=== PATIENT | female | born 1980 | race Caucasian/White ===

== ENCOUNTER 2023-09-04 02:55 | Outpatient (CLI) | payer BC, SELFPAY ==
[2023-09-04 17:32] LABS: Lab Add On Test DONE
== END 2023-09-04 02:56 | disposition home or self-care (01) ==
LOC: LBO 02:55
PROVIDERS: Advanced Practice Midwife; PCP Family Medicine; Visit Provider Family Medicine
DX: O26.891 Other specified pregnancy related conditions, first trimester (principal); Z67.91 Unspecified blood type, Rh negative
CPT/HCPCS: 36415; 86850; 86900; 86901; 90384

== ENCOUNTER 2023-11-17 15:11 | Inpatient (IN) | payer BC, SELFPAY ==
--- NOTE | 2023-10-23 | DI.US_ITS ---
Exam(s) US OB NICKY WEIGHT EXAM: US OB NICKY WEIGHT CLINICAL HISTORY: EXCESS GROWTH,[id number]. TECHNIQUE: Transabdominal obstetrical ultrasound performed. COMPARISON: US US OB TRANSVAGINAL from 04/03/2023 US US OB Greater Than 14 Weeks from 07/09/2023 FINDINGS:: Number of fetuses: One. position: Vertex. Placental location: Posterior. No evidence of previa. BIOMETRIC DATA: BPD: 94mm = 38+ 1 weeks HC: 341mm = 39+ 2 weeks AC: 348mm = 38+ 5 weeks FL: 74 mm = 37+ 6 weeks EFW: 09/28/2002 Gms = 95% Composite Age: 38+ 4 weeks OH: 02 November 2023 Heart Rate: 144BPM Amniotic fluid index: 15.5 cm. Amount of fluid is visually within normal limits. IMPRESSION: size is measuring more than 2 weeks above expected. weight at 95th percentile. DATA REPOSITORY:
[2023-11-17 15:24] VITALS: BP 124/81; PULSE 94; RESP 18; TEMP 36.9; O2SAT 99
[2023-11-17 15:25] VITALS: BP 124/81; PULSE 94
[2023-11-17] MEDS: miSOPROStol 25 MCG TAB PO ×3 (15:41→23:44)
--- NOTE | 2023-11-17 15:54 | W.PM.OBHPL1 ---
Date of service: 11/17/23 Time of Service: 15:54 Assessment and Plan Assessment and plan (1) Term : Status: Acute Assessment and plan: Narda is a 43yo at 40w with RH- RI GBS- HepB- HIV-. 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 Uncomplicated , no GDM, however in last 2 months, she has been measuring large. US 10/23/23 showed EFW 3500g, 95th%. Due to this and her age, we did decide to induce at 40 weeks which Narda was in agreement with . She received rhogam at 28 weeks.Plan for miso overnigh as long as she tolerates it. Current SVE is 0/30/-3, bishops score of 2. If necessary, will proceed with Pitocin in the morning. She does want to avoid medical interventions if possible. her transportation services representative will attend her delivery as well as her . she can eat tonight. Will use Hydroxazine for sleep at her request. Routine care otherwise. (2) Rh negative state in antepartum period: Status: Acute (3) HSV-2 infection complicating : Status: Acute Qualifiers: Trimester: third trimester Qualified Code(s): O98.513 - Other viral diseases complicating , third trimester; B00.9 - Herpesviral infection, unspecified (4) Hypothyroid: Status: Chronic Qualifiers: Hypothyroidism type: acquired Qualified Code(s): E03.9 - Hypothyroidism, unspecified OB-HPI Labor/Delivery History of Present Illness Chief Complaint: Scheduled Induction of Labor Indication for Induction: Macrosomia. OH Calculator Estimated Delivery Date Method Current WG Current Estimate 11/17/23 LMP (Certain) 40w 0d Comments: Advanced maternal age, large for gestational age History of Present Expected Delivery Route/Plan Specific Issues/Plan HSV, on prophylaxis Assessment: History Reviewed & Current Informed Consent Informed Consent: Induction of Labor Review of Systems All systems reviewed & are unremarkable except as noted in HPI and below PFSH All Active Problems (Updated 11/17/23 @ 16:03 by Robinson Naqvi) Hypothyroid (Chronic) HSV-2 infection complicating (Acute) Term (Acute) Rh negative state in antepartum period (Acute) Social History Smoking/Tobacco Use Status: Never Smoking risk assessment performed?: Yes Housing: house Do you feel safe at home: Yes History History 6 Para 0 Hx # Term Pregnancies Multiple births Hx # Pregnancies Ectopic pregnancies AB induced Hx Number of Living Children AB spontaneous Meds Allergies and Home Medications Allergies Allergy/AdvReac Type Severity Reaction Status Date / Time No Known Allergies Allergy Verified 09/04/23 15:15 Home Medications Medication Instructions Recorded Confirmed Type Unknown [Unable to Obtain] 09/04/23 09/04/23 History Exam Physical Exam Vital signs: Temp Pulse Resp BP Pulse Ox 36.9 C 94 H 18 124/81 99 11/17/23 15:24 11/17/23 15:25 11/17/23 15:24 11/17/23 15:25 11/17/23 15:24 Vital Signs Reviewed: Yes Detailed Labor and Delivery Exam Dilation: 0 Effacement (%): 30 station: -3 Cervix position: posterior Consistency: soft Vanessa Score: Cervical Points Exam 0 1 2 3 Dilation Closed 1-2cm 3-4 cm 5-6cm Effacement 0-30% 40-50% 60-70% 80% Consistency Firm Medium Soft Station -3 -2 -1,0 +1,+2 Position Posterior Mid Anterior VANESSA Score(Cervical Ripeness Score): 2 Amniotic Membrane Status: Intact Monitor Mode: External Contraction Frequency(min): none Fetus A Heart Rate Baseline: 140 Monitor Accelerations: 15 X 15 Monitor Decelerations: None Variability: Moderate (6-25 BPM) Presentation: Vertex Categories: Category I Est. Weight: 4000g HEENT Exam HEENT Exam: Normal Respiratory Exam Respiratory Exam: Normal Cardiovascular Exam Cardiovascular Exam: Normal Abdominal Exam Abdominal Exam: Normal Exam Exam: Normal Extremities Exam Extremities Exam: Abnormal (1+ edema of hands and feet) Skin Exam Skin Exam: Abnormal (erythematous lesions along stretch cox on abdomen) Detailed Neurological Exam Neurological: Present alert, oriented X3, normal reflexes and normal speech Results Results Group Beta Strep: Negative Blood Type: O- Rubella Status: Immune Varicella Immunity: Not Tested Risk Assessment Risk for Shoulder Dystocia Historical/Initial OB: POSITIVE FOR: Pre- BMI>30 40 Weeks: POSTIVE FOR: Maternal Weight Gain >40lb Increased Risk?: Yes Counseling: Maybe not estimated to be 4500g but is measuring large. Counseling done, risk of shoulder dystocia discussed, increased risk of C section discussed. Date/Initial: 11/17/23 [facility] Risk for Pre-Eclampsia Daily Dose ASA Indicated: No Yes, if 2 or more: POSITIVE FOR: Nulliparity, Age>= 35 yrs and BMI>30 Risk for Post- Hemorrhage At Risk?: No Counseled re: Active Management: Yes Risks Reviewed Risks Reviewed Upon Admission: Yes
[2023-11-17 15:55] LABS: HCT 33.9 % (36.0-46.0); HGB 11.6 g/dL (11.2-15.7); MCH 29.4 pg (27.0-33.0); MCHC 34.2 % (32.0-36.0); MCV 86 fL (80-95); MPV 10.4 fL (8.0-11.0); Platelet Count 205 10^3/uL (130-400); RBC 3.94 10^6/uL (3.93-5.22); RDW 13.8 % (11.7-14.6); RDW-SD 42.9 fL; WBC 8.69 10^3/uL (4.4-10.8)
[2023-11-17 19:32] VITALS: BP 137/82; PULSE 95
[2023-11-17 19:33] VITALS: PULSE 85; PULSE 86; O2SAT 97
[2023-11-17 19:38] VITALS: BP 137/82; RESP 18; TEMP 37.2; O2SAT 98
[2023-11-17] MEDS: valACYclovir 500 MG TAB PO (19:50)
[2023-11-17] MEDS: hydrOXYzine HCL 50 MG TAB PO (21:15)
--- NOTE | 2023-11-17 22:10 | NUR.NOTE ---
Nursing Note:2049-MD Robinson called. New order received. Goal for tonight is sleep while cervical ripening. 2149- Pt off EFM per orders. Performed patinet teaching regarding signs/symptoms to call this RN tonight between Miso doses. Pt encouraged to verbalize needs Pt verbalized understanding.
[2023-11-17 23:37] VITALS: BP 131/74; PULSE 68
[2023-11-18] VITALS (13 sets, daily range): BP systolic 120–135; BP diastolic 58–79; PULSE 0–98; RESP 18; TEMP 36.4–36.9
[2023-11-18] MEDS: miSOPROStol 25 MCG TAB PO (04:01)
[2023-11-18] MEDS: Levothyroxine 25 MCG TAB PO (05:56)
--- NOTE | 2023-11-18 07:27 | W.PM.OBNL1 ---
Date of service: 11/18/23 Time of Service: 07:27 Informed Consent Informed Consent: Induction of Labor Pelvic Exam Dilation: 0 Effacement (%): 40 station: -3 Cervix Position: mid Consistency: soft BISHOPS Score(Cervical Ripeness Score): 3 Vaginal Exam Presentation: Vertex Contractions Monitor Mode: None Fetus A Monitor: External (US) Heart Rate Baseline: 125 Presentation: Vertex Variability: Moderate (6-25 BPM) Categories: Category I FHR Rhythm: Regular Characteristics: Normal Accelerations: 15 X 15 Decelerations: None Amniotic Membrane Status: Intact Assessment and Plan Assessment and plan (1) Term : Status: Acute Assessment and plan: Narda received 4 doses of miso overnight with minimal change. Cervix is not open so I cannot place a cook balloon. Discussed starting pitocin v continuing with cervical ripening and given low bishops score, will place cervadil to continue cervical ripening. Risks and benefits discussed. She and her are in agreement with this plan. FHT have been normal throughout. No contractions. VSS. Platelets on admission were normal. Objective Abnormal lab results 11/17/23 Range/Units 15:30 Hct 33.9 L (36.0-46.0) % Temp Pulse Resp BP Pulse Ox 36.4 C L 82 18 120/58 L 98 11/18/23 03:41 11/18/23 03:41 11/18/23 01:01 11/18/23 03:41 11/17/23 19:38 Laboratory Results WBC 8.69 10^3/uL (4.4-10.8) 11/17/23 15:30 RBC 3.94 10^6/uL (3.93-5.22) 11/17/23 15:30 Hgb 11.6 g/dL (11.2-15.7) 11/17/23 15:30 Hct 33.9 % (36.0-46.0) L 11/17/23 15:30 MCV 86 fL (80-95) 11/17/23 15:30 MCH 29.4 pg (27.0-33.0) 11/17/23 15:30 MCHC 34.2 % (32.0-36.0) 11/17/23 15:30 RDW 13.8 % (11.7-14.6) 11/17/23 15:30 Plt Count 205 10^3/uL (130-400) 11/17/23 15:30 MPV 10.4 fL (8.0-11.0) 11/17/23 15:30 Patient ABO/Rh O Negative 11/17/23 15:30 Antibody Screen POSITIVE 11/17/23 15:30 Antibody Identification Anti-D 11/17/23 15:30 Vital Signs Reviewed: Yes Subjective Interval history since last seen: Narda did well overnight, although not much sleep. Did have some cramping with miso doses. Results Hemoglobin/Hematocrit: Hgb 11.6 g/dL (11.2-15.7) 11/17/23 15:30 Hct 33.9 % (36.0-46.0) L 11/17/23 15:30 Abnormal Lab Findings: Abnormal Labs 11/17/23 15:30 Hct 33.9 L
[2023-11-18] MEDS: Dinoprostone-CERVICAL 10 MG VSUPP VG (08:46)
[2023-11-18] MEDS: valACYclovir 500 MG TAB PO (10:21)
--- NOTE | 2023-11-18 14:51 | W.PM.OBNL1 ---
Date of service: 11/18/23 Time of Service: 14:51 Informed Consent Informed Consent: Induction of Labor Contractions Monitor Mode: External Contraction Frequency(min): 0 Fetus A Monitor: External (US) Heart Rate Baseline: 150 Presentation: Vertex Variability: Moderate (6-25 BPM) Categories: Category I FHR Rhythm: Regular Characteristics: Normal Accelerations: 15 X 15 Decelerations: None Amniotic Membrane Status: Intact Assessment and Plan Assessment and plan (1) Term : Status: Acute Assessment and plan: Narda is doing well, although not feeling much change. Cervidil in place since just before 9am. Baby is tolerating well although difficult to keep on the monitor. Category 1 strip when seen. Continue current plan. Anticipate starting pitocin at 915pm. Objective Abnormal lab results 11/17/23 Range/Units 15:30 Hct 33.9 L (36.0-46.0) % Temp Pulse Resp BP Pulse Ox 36.8 C 80 18 128/79 98 11/18/23 12:45 11/18/23 12:43 11/18/23 01:01 11/18/23 12:43 11/17/23 19:38 Laboratory Results WBC 8.69 10^3/uL (4.4-10.8) 11/17/23 15:30 RBC 3.94 10^6/uL (3.93-5.22) 11/17/23 15:30 Hgb 11.6 g/dL (11.2-15.7) 11/17/23 15:30 Hct 33.9 % (36.0-46.0) L 11/17/23 15:30 MCV 86 fL (80-95) 11/17/23 15:30 MCH 29.4 pg (27.0-33.0) 11/17/23 15:30 MCHC 34.2 % (32.0-36.0) 11/17/23 15:30 RDW 13.8 % (11.7-14.6) 11/17/23 15:30 Plt Count 205 10^3/uL (130-400) 11/17/23 15:30 MPV 10.4 fL (8.0-11.0) 11/17/23 15:30 Patient ABO/Rh O Negative 11/17/23 15:30 Antibody Screen POSITIVE 11/17/23 15:30 Antibody Identification Anti-D 11/17/23 15:30 Vital Signs Reviewed: Yes Subjective Interval history since last seen: Narda is comfortable, still some intermittent cramping and irregular contractions. Results Hemoglobin/Hematocrit: Hgb 11.6 g/dL (11.2-15.7) 11/17/23 15:30 Hct 33.9 % (36.0-46.0) L 11/17/23 15:30 Abnormal Lab Findings: Abnormal Labs 11/17/23 15:30 Hct 33.9 L
--- NOTE | 2023-11-18 17:49 | LC.LAC2 ---
Date of service: 11/18/23 Time of Service: 16:30 Note Note: Consultation Time spent with patient 15 min. Accompanied by:? Alone ? Partner ? Obstetrical Provider:? [place] Previous BF experience:? First time parent Background: D ? Plans to breastfeed and is well read. Desires support after delivery. Has her own pump, a lansinoh. Hx of breast reduction. A ? Reinforced parent feeding choice and information choice. R ? Comfort with information and looking forward to managing with baby here. Education was provided r/t:? -Benefits of for baby and mother -Benefits of early and frequent Jwwc-wa-Tftf (STS) -Benefits of early and frequent (expect that your baby will feed at least 8-12 times/24 hours) -Basics of milk production (frequent breast drainage + [id number] increase milk supply); stomach size -Baby-led feedings (cue-based), examples of feeding cues; waking baby for feedings, as needed -Positioning and attachment (signs of a good latch); stress that should not hurt -Indications of effective milk transfer (swallowing, contentment, softer breast, infant output, weight gain) -Recommendations for exclusive BF for the first six months of life; continued BF, with addition of complementary foods, beyond six months - takes practice; is a skill for mom and baby to learn -Risks of supplementation (breast milk substitutes), and risks of introducing pacifiers and bottles -Non-pharmacological pain management in labor -Importance of rooming-in, to avoid stress r/t separation from mother, to allow opportunities for parents to learn feeding cues, normal nighttime behaviors, and techniques for calming their baby -Recommendations for limiting visitors, to allow time for the family to establish , learn about their baby, and to allow family rest between feedings -Availability of inpatient and post-discharge support (notify RNs of any concerns, such as pain or difficulty getting NB to feed on either breast, etc) -Secrets of baby behavior (If NB has recently BF well, explore other reasons for crying.) -Written information provided and reviewed (Human Milk is Outstanding Food for Babies, ) Specific questions were addressed.? Mom was encouraged to call the Center, later in , if she has other BF-related questions. -Return to work and breast pump: Anticipating return to work or school mom will explore pump options under the Affordable Care Act (GEMA), WIC clinic or already has a breast pump. Reviewed access through DME provider or Resources as needed ??? Lucia Gomez, RNC, IBCLC, MST, BSN Investment Associate, Center, [facility], [facility] ([facility]) [address] [place] [address], [place] [address] o?? Topic areas o?? Benefits of and breastmilk o?? Importance of exclusive o?? Non-pharmacologic pain relief methods for labor o?? Early initiation of o?? Early ripo-ib-bocw contact o?? Rooming-in on a 24 hour basis o?? Baby-led feeding o?? Frequency of feeding in relation to establishing a milk supply o?? Exclusivity of for the first 6 months o?? Continuation of after introduction of appropriate complimentary foods Subjective Identifiers Parent's Name: Narda Fred Parental Concerns: introduction of services Background Experience: First Time Support: Supportive and Involved Partner and Supportive Family Feeding Preference: Exclusive Pump Availability: Has Pump Results Infant Weight/I&O Weight Change: Weight 130.635 kg I&O: 11/17/23 11/17/23 11/18/23 11/18/23 11:59 23:59 11:59 23:59 Output Total 300 / 300 Balance -300 / -300 Output: Urine 300 / 300 Other: Urine Color Light Hali Urine Appearance Clear Comment Pt voiding every couple of hours, denies pain, burning or incontinence Weight 130.635 kg
--- NOTE | 2023-11-18 20:59 | W.PM.OBDISCH ---
Date of service: 11/18/23 Time of Service: 20:59 DS: Diagnosis Discharge Diagnosis (1) Term : Status: Acute Asessment and Plan: Narda presented yesterday for a scheduled induction for post dates, advanced maternal age, and LGA. She received 4 doses of misoprostil with no change, minimal cramping. she then had cervedil placed. 12 hours later, when I went to remove the cervedil at 2030, it had fallen out. She remembers seeing the string in place at 1600. she still had no cervical change, was closed, and only very mild intermittent contractions. We discussed options including starting pitocin, pausing for the night to rest and starting pitocin in the morning, or discharging to home and trying again in a couple of days. She had her elected to go home. Baby was category 1, reactive. Jude vitals signs were normal throughout. She is discharged home and we will discuss next steps tomorrow. Discharge Plan Disposition Patient Disposition: Home Condition: Good Discharge Details Reason For Visit: Term Admit Date/Time: 11/17/23 15:11 Admit Provider: Robinson Naqvi Attending Provider: Robinson Naqvi Primary Care Provider: Robinson Naqvi Home Meds and New Rx's Prescriptions: No Action valacyclovir 500 mg tablet 500 mg PO BID levothyroxine 25 mcg tablet 25 mcg PO ONCE Patient Comments: TAKE ONE TABLET BY MOUTH EVERY MORNING ON AN EMPTY STOMACH Discharge Instructions Stand Alone Forms: Center Observation Activity:: Activity as Tolerated Equipment/Supplies:: No Equipment Needed Diet:: As Tolerated Discharge Orders Discharge Orders: Discharge Order (Routine); Ordered 11/18/23 Ordered By: Robinson Naqvi OB:DS Summary Summary Procedures: Not delivered Contraception Discussed Contraception Discussed: No, Status at Discharge Functional status at discharge: independent ambulation Overall status at discharge: patient is back to baseline Mental Status: mental status grossly normal Speech and Movement: speech and movement normal Mood: congruent mood Affect: normal affect Quality:SDOH Health Related Social Needs: No Data to Display Exam Physical Exam Vital signs: Temp Pulse Resp BP Pulse Ox 36.8 C 79 18 133/77 98 11/18/23 12:45 11/18/23 16:09 11/18/23 01:01 11/18/23 16:09 11/17/23 19:38 Vital Signs Reviewed: Yes Constitutional Constitutional: no acute distress Respiratory Exam Respiratory Exam: Normal Cardiovascular Exam Cardiovascular Exam: Normal Extremities Exam Comment: 1-2+ edema bilateral lower extremities. PFSH All Active Problems Hypothyroid (Chronic) HSV-2 infection complicating (Acute) Term (Acute) Rh negative state in antepartum period (Acute) Social History Smoking/Tobacco Use Status: Never Smoking risk assessment performed?: Yes Housing: house Do you feel safe at home: Yes Do you feel safe in your relationship?: Yes History History 6 Para 0 Hx # Term Pregnancies Multiple births Hx # Pregnancies Ectopic pregnancies AB induced Hx Number of Living Children AB spontaneous DS: Data Vitals/I&O Vitals and I&O: Vital Signs Temperature 36.8 C 11/18/23 12:45 Temperature Source Oral 11/18/23 12:45 Pulse 79 11/18/23 16:09 Pulse Rhythm Regular 11/17/23 16:10 Respiratory Rate 18 11/18/23 01:01 Blood Pressure 133/77 11/18/23 16:09 Blood Pressure Mean 100 11/17/23 19:38 Pulse Oximetry 98 11/17/23 19:38 Oxygen Delivery Method Room Air 11/17/23 15:24 Oxygen Flow Rate 0 11/17/23 15:24 Pain Level 0 11/17/23 15:24 Comment deferred at this time, pt is away from monitor 11/18/23 18:19 Intake & Output 11/17/23 11/18/23 11/18/23 23:59 11:59 23:59 Output Total 300 / 300 Balance -300 / -300 Weight 130.635 kg Output: Urine 300 / 300 Other: Urine Color Light Hali Urine Appearance Clear Comment Pt voiding every couple of hours, denies pain, burning or incontinence Data Completed and Pending Labs on day of discharge: Labs from last 24 hours 11/17/23 15:30 Antibody Screen POSITIVE Antibody Identification Anti-D
== END 2023-11-18 21:10 | disposition home or self-care (01) | DRG 832 ==
LOC: OBS 15:12
PROVIDERS: Admitting Provider Family Medicine; PCP Family Medicine; Visit Provider Family Medicine
DX: O36.63X0 Maternal care for excessive fetal growth, third trimester, not applicable or unspecified (principal); O98.513 Other viral diseases complicating pregnancy, third trimester; Z3A.38 38 weeks gestation of pregnancy; O26.893 Other specified pregnancy related conditions, third trimester; Z67.91 Unspecified blood type, Rh negative; B00.9 Herpesviral infection, unspecified; E03.9 Hypothyroidism, unspecified
CPT/HCPCS: 00123; 76816; 85027; 86850; 86900; 86901; 59200; 86870; J3490

== ENCOUNTER 2023-11-21 14:05 | Inpatient (IN) | payer BC, SELFPAY ==
[2023-11-21] VITALS (85 sets, daily range): BP systolic 100–163; BP diastolic 56–96; PULSE 39–111; RESP 16; TEMP 36.6–36.7; O2SAT 84–100; BMI 43.7
[2023-11-21] MEDS: Lactated Ringers 1,000 ML 125 ML IV ×2 (14:00→21:01)
--- NOTE | 2023-11-21 14:07 | HPE_ITS ---
Date of service: 11/21/23 Time of Service: 14:08 Assessment and Plan Assessment and plan (1) : Status: Acute Assessment and plan: Narda is a 43yo at 40.4weeks by LMP with O-, GBS- RI HIV- HepC-. complicated only by known HSV infection with one outbreak in third trimester, on prophylaxis since. Baby has measured LGA with US 10/22 showing 95th%, EFW 3500g at that time. We attempted induction 3 days ago with miso x4 and cervedill, but no change, so she went home. Today, she called reporting SROM at noon with green fluid. She had been having mild contractions for an hour which have now subsided. Given the moderate mec and no contractions currently, we did decide to start pitocin now. Her duola is present as is her . She would like to avoid epidural, open to nitrous. Qualifiers: Weeks of gestation: 40 weeks Qualified Code(s): Z3A.40 - 40 weeks gestation of (2) Hypothyroid: Status: Chronic Qualifiers: Hypothyroidism type: acquired Qualified Code(s): E03.9 - Hypothyroidism, unspecified (3) HSV-2 infection complicating : Status: Acute Qualifiers: Trimester: third trimester Qualified Code(s): O98.513 - Other viral diseases complicating , third trimester; B00.9 - Herpesviral infection, unspecified (4) Rh negative state in antepartum period: Status: Acute OB-HPI Labor/Delivery History of Present Illness Reason for Visit: NST Chief Complaint: Suspected Rupture of Membranes , Associated Signs and Symptoms of Suspected ROM: Leaking fluid. OH Calculator Estimated Delivery Date Method Current WG Current Estimate 11/17/23 LMP (Certain) 40w 4d History of Present Expected Delivery Route/Plan Specific Issues/Plan HSV, on prophylaxis Informed Consent Informed Consent: Induction of Labor Review of Systems All systems reviewed & are unremarkable except as noted in HPI and below PFSH All Active Problems (Updated 11/21/23 @ 14:13 by Robinson Naqvi) (Acute) Hypothyroid (Chronic) HSV-2 infection complicating (Acute) Term (Acute) Rh negative state in antepartum period (Acute) Social History (Reviewed 11/21/23 @ 14:12 by Robinson Chowdhury Smoking/Tobacco Use Status: Never Smoking risk assessment performed?: Yes Housing: house Do you feel safe at home: Yes Do you feel safe in your relationship?: Yes History History 6 Para 0 Hx # Term Pregnancies Multiple births Hx # Pregnancies Ectopic pregnancies AB induced Hx Number of Living Children AB spontaneous Meds Allergies and Home Medications Allergies Allergy/AdvReac Type Severity Reaction Status Date / Time No Known Allergies Allergy Verified 09/04/23 15:15 Home Medications Medication Instructions Recorded Confirmed Type levothyroxine 25 mcg tablet 25 mcg PO ONCE 11/17/23 11/17/23 History valacyclovir 500 mg tablet 500 mg PO BID 11/17/23 11/17/23 History Exam Physical Exam Vital signs: Pulse BP 111 H 124/64 11/21/23 13:23 11/21/23 13:23 Vital Signs Reviewed: Yes Constitutional Constitutional: no acute distress Detailed Labor and Delivery Exam Dilation: 0 Effacement (%): 40 station: -3 Cervix position: posterior Consistency: soft Vanessa Score: Cervical Points Exam 0 1 2 3 Dilation Closed 1-2cm 3-4 cm 5-6cm Effacement 0-30% 40-50% 60-70% 80% Consistency Firm Medium Soft Station -3 -2 -1,0 +1,+2 Position Posterior Mid Anterior VANESSA Score(Cervical Ripeness Score): 3 Amniotic Membrane Status: Ruptured Rupture Method: Spontaneous Amniotic Fluid: Meconium Pooling: Positive Monitor Mode: External Contraction Frequency(min): none Contraction Intensity: Mild Fetus A Heart Rate Baseline: 140 Monitor Accelerations: Present Monitor Decelerations: None Variability: Moderate (6-25 BPM) Presentation: Vertex Categories: Category I Est. Weight: 4000 Date of Membrane Rupture: 11/21/23 Time of Membrane Rupture: 11:55 Assessment Note: Category 1, a bit flat on admission but perked up when mom had a small snack. Now reactive, category 1. Respiratory Exam Respiratory Exam: Normal Cardiovascular Exam Cardiovascular Exam: Normal Exam Exam: Normal Extremities Exam Extremities Exam: Normal Results Results Group Beta Strep: Negative Blood Type: O- Rubella Status: Immune Varicella Immunity: Not Tested Risk Assessment Risk for Shoulder Dystocia Historical/Initial OB: POSITIVE FOR: Pre- BMI>30 40 Weeks: POSTIVE FOR: Maternal Weight Gain >40lb Counseling: Maybe not estimated to be 4500g but is measuring large. Counseling done, risk of shoulder dystocia discussed, increased risk of C section discussed. Date/Initial: 11/17/23 [facility] [place] Risk for Pre-Eclampsia Yes, if 2 or more: POSITIVE FOR: Nulliparity, Age>= 35 yrs and BMI>30 Risk for Post- Hemorrhage Counseled re: Active Management: Yes Risks Reviewed Risks Reviewed Upon Admission: Yes
[2023-11-21 14:28] LABS: HCT 36.7 % (36.0-46.0); HGB 12.3 g/dL (11.2-15.7); MCH 29.5 pg (27.0-33.0); MCHC 33.5 % (32.0-36.0); MCV 88 fL (80-95); MPV 9.5 fL (8.0-11.0); Platelet Count 240 10^3/uL (130-400); RBC 4.17 10^6/uL (3.93-5.22); RDW-SD 44.7 fL; WBC 9.46 10^3/uL (4.4-10.8)
--- NOTE | 2023-11-21 17:20 | W.PM.OBNL1 ---
Date of service: 11/21/23 Time of Service: 17:20 Informed Consent Informed Consent: Induction of Labor Pelvic Exam Dilation: 2 Effacement (%): 50 station: -3 Cervix Position: posterior Consistency: soft Vaginal Exam Presentation: Vertex Contractions Monitor Mode: External Contraction Frequency(min): 4 Contraction Duration(sec): 60 Intensity: Moderate/Strong Fetus A Monitor: Doppler Heart Rate Baseline: 125 Presentation: Vertex FHR Rhythm: Regular Characteristics: Normal Accelerations: Present Decelerations: None Amniotic Membrane Status: Ruptured Amniotic Fluid: Meconium Assessment and Plan Assessment and plan (1) : Status: Acute Assessment and plan: Pitocin was only turned on to 2u and she began karin regularly, and they have become quite intense. Pitocin was stopped when she was in the tub as we were not able to get baby on the monitor, but contractions continued. She initially got good relief from nitrous, but is requesting epidural. She has made good cervical change, so will proceed with epidural. When monitored, baby is doing well, FHR normal with accells. Anesthesia is coming in, and once in place, I may plave a IUPC. Qualifiers: Weeks of gestation: 40 weeks Qualified Code(s): Z3A.40 - 40 weeks gestation of Objective Temp Pulse Resp BP Pulse Ox 36.6 C 106 H 16 123/72 95 11/21/23 16:00 11/21/23 17:03 11/21/23 14:23 11/21/23 17:03 11/21/23 14:25 Laboratory Results WBC 9.46 10^3/uL (4.4-10.8) 11/21/23 14:17 RBC 4.17 10^6/uL (3.93-5.22) 11/21/23 14:17 Hgb 12.3 g/dL (11.2-15.7) 11/21/23 14:17 Hct 36.7 % (36.0-46.0) 11/21/23 14:17 MCV 88 fL (80-95) 11/21/23 14:17 MCH 29.5 pg (27.0-33.0) 11/21/23 14:17 MCHC 33.5 % (32.0-36.0) 11/21/23 14:17 RDW 14.0 % (11.7-14.6) 11/21/23 14:17 Plt Count 240 10^3/uL (130-400) 11/21/23 14:17 MPV 9.5 fL (8.0-11.0) 11/21/23 14:17 Patient ABO/Rh O Negative 11/21/23 14:17 Antibody Screen NEGATIVE 11/21/23 14:17 Vital Signs Reviewed: Yes Subjective Interval history since last seen: Contractions have intensified significantly, and she is requesting an epidural Results Hemoglobin/Hematocrit: Hgb 12.3 g/dL (11.2-15.7) 11/21/23 14:17 Hct 36.7 % (36.0-46.0) 11/21/23 14:17
--- NOTE | 2023-11-21 17:32 | ANES.PREOP_ITS ---
General Info Date of Service Date Performed: 11/21/23 Height: 5 ft 8 in Weight: 130.635 kg Body Mass Index (BMI): 43.7 Meds Allergies and Home Medications Allergies Allergy/AdvReac Type Severity Reaction Status Date / Time No Known Allergies Allergy Verified 09/04/23 15:15 Home Medication Medication Instructions Recorded levothyroxine 25 mcg tablet 25 mcg PO ONCE 11/17/23 valacyclovir 500 mg tablet 500 mg PO BID 11/17/23 Current Visit Medications: Current Medications Generic Name Dose Route Start Last Admin Trade Name Freq PRN Reason Stop Dose Admin Fentanyl/Ropivacaine 200 ml 11/21/23 17:30 Fentanyl/Ropivacaine 2 Mcg/Ml And 0.1% 200 Ml Cadd Cassette EP DIRECTED KENYETTA Ringer's Solution 1,000 mls @ 125 mls/hr 11/21/23 14:15 IV INFUSION KENYETTA Oxytocin/Sodium Chloride 30 unit in 500 mls @ 2 mls/hr 11/21/23 14:15 Pitocin/Normal Saline IV INFUSION KENYETTA Protocol 2 MILLIUNITS/MIN Ringer's Solution 500 mls @ 500 mls/hr 11/21/23 17:17 IV 11/21/23 18:16 BOLUS ONE IV Miscellaneous Supplies 1 each 11/21/23 14:15 Iv Access IV DIRECTED KENYETTA Sodium Chloride 0 ml 11/21/23 14:05 Normal Saline Flush 10 Ml Syr IVP PRN PRN Sodium Chloride 0 ml 11/21/23 20:00 Normal Saline Flush 10 Ml Syr IVP BID KENYETTA Sodium Chloride 0 ml 11/21/23 14:05 Normal Saline 10 Ml Vial IJ DIRECTED PRN PFSH Active Problems Active Problems: Problem Status Onset Code Z34.90 Hypothyroid E03.9 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, B00.9 Term Z34.90 Rh negative state in antepartum period O26.899, Z67.91 Tobacco Smoking/Tobacco Use Status: Never Alcohol Alcohol Intake: never Substance Use Substance use: Never Substance use type: does not use Prental History History 2 6 Para 0 Hx # Term Pregnancies Multiple births Hx # Pregnancies Ectopic pregnancies AB induced Hx Number of Living Children AB spontaneous Vital Signs and Lab Results Vital Signs Most Recent Vital Signs in EMR: Most Recent Vital Signs Temp Pulse Resp BP Pulse Ox 36.6 C 106 H 16 123/72 95 04/27/24 16:00 11/21/23 17:03 11/21/23 14:23 11/21/23 17:03 11/21/23 14:25 Lab Results 11/21/23 14:17 Blood Type / Crossmatch: 2 Patient ABO/Rh O Negative 11/21/23 Antibody Screen NEGATIVE 11/21/23 Complete Blood Count: 2 White Blood Count 9.46 10^3/uL (4.4-10.8) 11/21/23 14:17 Red Blood Count 4.17 10^6/uL (3.93-5.22) 11/21/23 14:17 Hemoglobin 12.3 g/dL (11.2-15.7) 11/21/23 14:17 Hematocrit 36.7 % (36.0-46.0) 11/21/23 14:17 Platelet Count 240 10^3/uL (130-400) 11/21/23 14:17 Complete Metabolic Panel: 2 No Data to Display Liver Function Panel: 2 No Data to Display Coagulation Panel: 2 No Data to Display Cardiac Panel: 2 No Data to Display Arterial Blood Gas: 2 No Data to Display Venous Blood Gas: 2 No Data to Display Pancreas Panel: 2 No Data to Display Thyroid Panel: 2 No Data to Display Infectious Disease: 2 No Data to Display Blood Cultures: 2 No Data to Display Toxicology Panel: 2 No Data to Display Panel: 2 No Data to Display Anesthesia Assessment and Plan Anesthesia History Personal History: No History of Anesthesia Complications and Malignant Hyperthermia Family History: No Family History of Anesthesia Complications Exercise Tolerance Exercise Tolerance: Metabolic Equivalents>4 Pertinent Negatives Pertinent Negatives: No Symptoms of GERD, No Major Cardiovascular Symptoms or Complaints, No Major Pulmonary Symptoms or Complaints and No History of CVA/TIA Cardiac & Pulmonary Exam Cardiac Exam: Normal S1/S2 Heart Sounds Pulmonary Exam: Clear Bilateral Breath Sounds Implantable Cardiac Device Does patient have a Pacemaker or an ICD?: No Airway Exam Known Difficult Airway: No Mallampati Class: 3 Mouth Opening: Normal (> 3cm) Thyromental Distance: Greater than 3 cm Neck Range of Motion: Full ROM Neck Circumference: Thick Teeth Condition: Normal Dentition ASA Classification ASA Score: ASA 3 Emergency Case?: No NPO Status NPO Status: Full Stomach () Status Status: Confirmed Anesthesia Plan Resuscitation Status: Full Code Anesthesia Technique: Labor Epidural Airway Planned: Natural Airway Pain Management: Epidural Monitors Used: Standard Monitors
[2023-11-21] MEDS: FentaNYL/ROPIvacaine 2 mcg/ml and 0.1% 200 ML CADD Cassette EP (18:25)
--- NOTE | 2023-11-21 18:27 | W.ANESNEU ---
Epidural/Spinal Catheter Date Performed: 11/21/23 Procedure Start: 17:50 Procedure Stop: 18:34 Requesting Provider: Robinson Naqvi Procedure Location: Obstetrics Reason Performed: Labor Epidural Standard Monitors Applied: Blood Pressure, SpO2 and See EMR for corresponding vital signs Patient Position: Sitting Sedation Given (Indicate Dose Given): No Sedation given Patient Mental Status: Awake Sterility: Hand Hygiene, Surgical Cap, Surgical Mask, Sterile Gloves, Sterile Drape/Sheet and Chlorhexidine Procedure Location: L2-L3 Interspace Epidural Needle: Tuohy 18 Gauge Needle Length: 3.5 Inch Needle Approach: Midline Epidural Procedure: Skin Prepped, Sterile Drape Placed, 1% Lidocaine to skin and subcutaneous tissue with 25G needle, Tuohy Needle placed, GREGORIO to Saline Used, Epidural Catheter Placed, Negative Heme, Positive Heme Noted (with first attempt at L3-4, unable to clear with repositioning, removed and started over at L2-3), Negative CSF Flow and Tuohy Needle Removed Catheter Placed?: Catheter Placed Test Dose (Indicate Dose Given): 3ml 1.5% Lidocaine with 1:200K Epinephrine Given and Negative Test Dose Loss of Resistance Depth (cm): 8 Catheter depth at skin (cm): 14 Dressing: Sorbaview Dressing Placed and Mastisol Used Epidural Provider Bolus (Indicate Dose Given): Total bolus dose given in 3-5 ml divided doses and Total Bupivacaine 0.25% Given (ml) Dose:: 7ml Additives (Indicate Dose Given ): Fentanyl PF Dose:: 100mcg Infusion Medication: Medication Infusion Began Medication Infusion: Ropivacaine 0.1% with Fentanyl 2mcg/ml (started at 1832) Maintenance Infusion Rate (ml/hour): 10 PCEA Bolus Dose (ml): 5 Block Level: N/A Paresthesia: None Ultrasound: Not Used Number of Attempts (See previous attempts in note section): 2 Procedure Tolerated: No Complications and Patient tolerated well Procedure Outcome: Successful Procedure Comment:: First attempt at L3-4, easy GREGORIO, threaded easily, heme in catheter, unable to clear with repositioning, removed and second attempt at L2-3 successful with slight resistance to catheter insertion at first but then threaded without difficulty. No heme, test dose then bolus. Patient more relaxed and states contractions are less intense. Performed By: Jana Reese
--- NOTE | 2023-11-21 20:53 | W.PM.OBNL1 ---
Date of service: 11/21/23 Time of Service: 20:53 Informed Consent Informed Consent: Induction of Labor Pelvic Exam Dilation: 4 Effacement (%): 50 station: -2 Position: ROP Cervix Position: anterior Consistency: soft Vaginal Exam Presentation: Vertex Contractions Monitor Mode: External Contraction Frequency(min): 4 Contraction Duration(sec): 60 Intensity: Moderate/Strong Fetus A Monitor: External (US) Heart Rate Baseline: 140 Presentation: Vertex Variability: Moderate (6-25 BPM) Categories: Category I FHR Rhythm: Regular Characteristics: Normal Accelerations: 15 X 15 Decelerations: None Amniotic Membrane Status: Ruptured Assessment and Plan Assessment and plan (1) : Status: Acute Assessment and plan: Epidural placement was quite difficult, and was not effectibe the first time. Anesthesia did return and replace it and she is now very comfortable. Baby is now category 1, reactive, with accels. I did do a POCUS and confirmed vertex position, ROP. Before the epidural, she had progressed well to 4-5/50/-2, now anterior. Will continue present management, anticipate . Qualifiers: Weeks of gestation: 40 weeks Qualified Code(s): Z3A.40 - 40 weeks gestation of Objective Temp Pulse Resp BP Pulse Ox 36.6 C 82 16 136/78 93 11/21/23 16:00 11/21/23 20:51 11/21/23 14:23 11/21/23 20:51 11/21/23 20:51 Laboratory Results WBC 9.46 10^3/uL (4.4-10.8) 11/21/23 14:17 RBC 4.17 10^6/uL (3.93-5.22) 11/21/23 14:17 Hgb 12.3 g/dL (11.2-15.7) 11/21/23 14:17 Hct 36.7 % (36.0-46.0) 11/21/23 14:17 MCV 88 fL (80-95) 11/21/23 14:17 MCH 29.5 pg (27.0-33.0) 11/21/23 14:17 MCHC 33.5 % (32.0-36.0) 11/21/23 14:17 RDW 14.0 % (11.7-14.6) 11/21/23 14:17 Plt Count 240 10^3/uL (130-400) 11/21/23 14:17 MPV 9.5 fL (8.0-11.0) 11/21/23 14:17 Patient ABO/Rh O Negative 11/21/23 14:17 Antibody Screen NEGATIVE 11/21/23 14:17 Vital Signs Reviewed: Yes Subjective Interval history since last seen: Initial epidural was not effective. Anesthesia came back in and replaced it, and she is now comfortable. Results Hemoglobin/Hematocrit: Hgb 12.3 g/dL (11.2-15.7) 11/21/23 14:17 Hct 36.7 % (36.0-46.0) 11/21/23 14:17 Ultrasound OB Ultrasound for presentation. Indication: slow progress, back labor Position: ROP. Presentation: Vertex. Exam complete.
--- NOTE | 2023-11-21 20:54 | ANES.NEUR_ITS ---
Epidural/Spinal Catheter Date Performed: 11/21/23 Procedure Start: 20:21 Procedure Stop: 20:54 Requesting Provider: Robinson Naqvi Procedure Location: Obstetrics Reason Performed: Labor Epidural Standard Monitors Applied: Blood Pressure, SpO2 and See EMR for corresponding vital signs Patient Position: Sitting Sedation Given (Indicate Dose Given): No Sedation given Patient Mental Status: Awake Sterility: Hand Hygiene, Surgical Cap, Surgical Mask, Sterile Gloves, Sterile Drape/Sheet and Chlorhexidine Procedure Location: L3-L4 Interspace Epidural Needle: Tuohy 18 Gauge Needle Length: 3.5 Inch Needle Approach: Paramedian Epidural Procedure: Skin Prepped, Sterile Drape Placed, 1% Lidocaine to skin and subcutaneous tissue with 25G needle, Tuohy Needle placed, GREGORIO to Saline Used, E pidural Catheter Placed, Negative Heme, Negative CSF Flow and Tuohy Needle Removed Catheter Placed?: Catheter Placed (@ 2029) Test Dose (Indicate Dose Given): 3ml 1.5% Lidocaine with 1:200K Epinephrine Given and Negative Test Dose Loss of Resistance Depth (cm): 9 Catheter depth at skin (cm): 14 Dressing: Sorbaview Dressing Placed, Mastisol Used and Dressing reinforced with Tape Epidural Provider Bolus (Indicate Dose Given): Total bolus dose given in 3-5 ml divided doses and Total Ropivacaine 0.1% with Fentanyl 2mcg/ml Given from pump. (ml) Dose:: 5 ml + 5 ml = 10 ml total Additives (Indicate Dose Given ): None Infusion Medication: Medication Infusion Began (@ 2035) Medication Infusion: Ropivacaine 0.1% with Fentanyl 2mcg/ml Maintenance Infusion Rate (ml/hour): 10 PCEA Bolus Dose (ml): 5 Post Procedure Pain score (0-10): 0 Block Level: N/A Paresthesia: None Ultrasound: Not Used Number of Attempts (See previous attempts in note section): 3 Procedure Tolerated: No Complications and Patient tolerated well Procedure Outcome: Successful Procedure Comment:: Called back since pain level back to pre-procedure during contractions. Discussed re-doing the epidural in hopes of better placement with more relief. P atient aware that it may be difficult or even may be unsuccessful in further attempts. Patient wished to proceed, Dr. Naqvi agreed and encouraged the plan. Epidural catheter removed, blue tip intact. Infusion stopped during placement. Attempts at L4-5, L2-3 without GREGORIO, L3-4 finally successful. No heme, catheter advanced very smoothly.Patient very happy with pain relief. Performed By: Jana Reese
--- NOTE | 2023-11-21 22:49 | W.PM.OBNL1 ---
Date of service: 11/21/23 Time of Service: 22:49 Informed Consent Informed Consent: Induction of Labor Pelvic Exam Dilation: 7 Effacement (%): 80 station: -2 Cervix Position: anterior Consistency: soft Vaginal Exam Presentation: Vertex Contractions Monitor Mode: External Contraction Frequency(min): 4 Contraction Duration(sec): 60 Intensity: Moderate/Strong Fetus A Monitor: External (US) Heart Rate Baseline: 140 Presentation: Vertex Variability: Moderate (6-25 BPM) Categories: Category I Characteristics: Bradycardia Accelerations: Present Decelerations: None Amniotic Membrane Status: Ruptured Assessment Note: difficult to monitor Assessment and Plan Assessment and plan (1) : Status: Acute Assessment and plan: Narda is doing well now that her epidural is in place. She has progressed to /-2. Continues to do frequent position changes. Continue current management. Qualifiers: Weeks of gestation: 40 weeks Qualified Code(s): Z3A.40 - 40 weeks gestation of Objective Temp Pulse Resp BP Pulse Ox 36.6 C 82 16 129/69 98 11/21/23 16:00 11/21/23 22:46 11/21/23 14:23 11/21/23 22:31 11/21/23 22:46 Laboratory Results WBC 9.46 10^3/uL (4.4-10.8) 11/21/23 14:17 RBC 4.17 10^6/uL (3.93-5.22) 11/21/23 14:17 Hgb 12.3 g/dL (11.2-15.7) 11/21/23 14:17 Hct 36.7 % (36.0-46.0) 11/21/23 14:17 MCV 88 fL (80-95) 11/21/23 14:17 MCH 29.5 pg (27.0-33.0) 11/21/23 14:17 MCHC 33.5 % (32.0-36.0) 11/21/23 14:17 RDW 14.0 % (11.7-14.6) 11/21/23 14:17 Plt Count 240 10^3/uL (130-400) 11/21/23 14:17 MPV 9.5 fL (8.0-11.0) 11/21/23 14:17 Patient ABO/Rh O Negative 11/21/23 14:17 Antibody Screen NEGATIVE 11/21/23 14:17 Vital Signs Reviewed: Yes Subjective Patient Reports: No new Complaints Interval history since last seen: Doing well. Comfortable with epidural Results Hemoglobin/Hematocrit: Hgb 12.3 g/dL (11.2-15.7) 11/21/23 14:17 Hct 36.7 % (36.0-46.0) 11/21/23 14:17
[2023-11-22] VITALS (25 sets, daily range): BP systolic 99–141; BP diastolic 59–75; PULSE 61–82; RESP 16–18; TEMP 35.6–36.8; O2SAT 93–97
[2023-11-22] MEDS: Normal Saline Flush 10 ML SYR IVP ×4 (02:15→19:25)
--- NOTE | 2023-11-22 02:21 | PGE_ITS ---
Date of service: 11/22/23 Time of Service: 02:22 Informed Consent Informed Consent: Induction of Labor Pelvic Exam Dilation: 7 Effacement (%): 80 station: -2 Contractions Monitor Mode: Palpation Contraction Frequency(min): 5 Contraction Duration(sec): 60 Intensity: Moderate IUPC resting tone (mmHg): 30 IUPC peak pressure (mmHg): 50 IUPC Sprague units: 80 Fetus A Monitor: External (US) Heart Rate Baseline: 140 Presentation: Vertex Variability: Moderate (6-25 BPM) Categories: Category I FHR Rhythm: Regular Characteristics: Normal Accelerations: Present Decelerations: None Assessment Note: difficult to monitor. attempted FSE, placed, but did not cotton picker operator FHR accurately so replaced externals. Assessment and Plan Assessment and plan (1) : Status: Acute Assessment and plan: Narda labor has stalled, no change since 11pm and contractions have slowed. She is difficult to monitor. FSE did not cotton picker operator well, but baby has been category 1 whenever on the monitor. IUPC placed, low MVUs. Will restart pitocin at 2u, she responded quickly to pit previously. Hope to get a better contraction patter. Qualifiers: Weeks of gestation: 40 weeks Qualified Code(s): Z3A.40 - 40 weeks gestation of Objective Temp Pulse Resp BP Pulse Ox 36.4 C L 74 16 131/67 97 11/22/23 01:28 11/22/23 01:16 11/21/23 14:23 11/22/23 01:16 11/21/23 23:08 Laboratory Results WBC 9.46 10^3/uL (4.4-10.8) 11/21/23 14:17 RBC 4.17 10^6/uL (3.93-5.22) 11/21/23 14:17 Hgb 12.3 g/dL (11.2-15.7) 11/21/23 14:17 Hct 36.7 % (36.0-46.0) 11/21/23 14:17 MCV 88 fL (80-95) 11/21/23 14:17 MCH 29.5 pg (27.0-33.0) 11/21/23 14:17 MCHC 33.5 % (32.0-36.0) 11/21/23 14:17 RDW 14.0 % (11.7-14.6) 11/21/23 14:17 Plt Count 240 10^3/uL (130-400) 11/21/23 14:17 MPV 9.5 fL (8.0-11.0) 11/21/23 14:17 Patient ABO/Rh O Negative 11/21/23 14:17 Antibody Screen NEGATIVE 11/21/23 14:17 Vital Signs Reviewed: Yes Subjective Interval history since last seen: Feels contractions have slowed significantly. Results Hemoglobin/Hematocrit: Hgb 12.3 g/dL (11.2-15.7) 11/21/23 14:17 Hct 36.7 % (36.0-46.0) 11/21/23 14:17
[2023-11-22] MEDS: Oxytocin/Normal Saline 30 UNIT/500 ML BAG 2 UNITS IV (02:35)
[2023-11-22] MEDS: FentaNYL/ROPIvacaine 2 mcg/ml and 0.1% 200 ML CADD Cassette EP (03:11)
--- NOTE | 2023-11-22 05:10 | W.PM.OBNL1 ---
Date of service: 11/22/23 Time of Service: 05:10 Informed Consent Informed Consent: Induction of Labor Pelvic Exam Dilation: 7 Effacement (%): 80 station: -2 Contractions Monitor Mode: External Contraction Frequency(min): 6 Contraction Duration(sec): 60 Intensity: Mild/Moderate Fetus A Monitor: External (US) Heart Rate Baseline: 140 Presentation: Vertex Variability: Moderate (6-25 BPM) Categories: Category I FHR Rhythm: Regular Characteristics: Normal Accelerations: Present Decelerations: None Assessment and Plan Assessment and plan (1) : Status: Acute Qualifiers: Weeks of gestation: 40 weeks Qualified Code(s): Z3A.40 - 40 weeks gestation of (2) Failure to progress in labor: Status: Acute Assessment and plan: Narda has been at 6-7cm for 6 hours now, numerous position changes. Pitocin did increase contractions but we were unable to titrate up due to inability to monitor baby adequately and due to her pain level. After discussion with Dr Goldberg and with Narda, we discussed either trying again to place an FSE and IUPC and increase pitocin v proceed to . We did decide to proceed to . Dr Goldberg is on her way in. Baby remains stable, category 1 strip with good accelerations. Objective Temp Pulse Resp BP Pulse Ox 36.5 C 65 16 141/69 H 97 11/22/23 05:02 11/22/23 04:01 11/21/23 14:23 11/22/23 04:01 11/21/23 23:08 Laboratory Results WBC 9.46 10^3/uL (4.4-10.8) 11/21/23 14:17 RBC 4.17 10^6/uL (3.93-5.22) 11/21/23 14:17 Hgb 12.3 g/dL (11.2-15.7) 11/21/23 14:17 Hct 36.7 % (36.0-46.0) 11/21/23 14:17 MCV 88 fL (80-95) 11/21/23 14:17 MCH 29.5 pg (27.0-33.0) 11/21/23 14:17 MCHC 33.5 % (32.0-36.0) 11/21/23 14:17 RDW 14.0 % (11.7-14.6) 11/21/23 14:17 Plt Count 240 10^3/uL (130-400) 11/21/23 14:17 MPV 9.5 fL (8.0-11.0) 11/21/23 14:17 Patient ABO/Rh O Negative 11/21/23 14:17 Antibody Screen NEGATIVE 11/21/23 14:17 Vital Signs Reviewed: Yes Subjective Interval history since last seen: Narda is very tired, feels epidural is not doing much. Results Hemoglobin/Hematocrit: Hgb 12.3 g/dL (11.2-15.7) 11/21/23 14:17 Hct 36.7 % (36.0-46.0) 11/21/23 14:17
[2023-11-22] MEDS: Lactated Ringers 1,000 ML 125 ML IV (05:31)
--- NOTE | 2023-11-22 05:52 | OBCE_ITS ---
Date of service: 11/22/23 Time of Service: 05:52 Assessment and Plan Assessment and plan (1) : Status: Acute Assessment and plan: Patient is postdates with spontaneous rupture of membranes for meconium stained fluid. Despite attempted augmentation of labor, no progress beyond 6 cm. Reassuring maternal and status. Will progress to delivery. Risk benefits, and alternatives were explained to the patient including risk of infection, bleeding, injury to surrounding organs, risk of anesthesia, other complications. All questions were answered. Or crew has been notified and present for delivery. Anesthesia seen patient currently. Qualifiers: Weeks of gestation: 40 weeks Qualified Code(s): Z3A.40 - 40 weeks gestation of (2) Failure to progress in labor: Status: Acute (3) Term : Status: Acute (4) Rh negative state in antepartum period: Status: Acute History of Present Illness History of Present Illness Chief Complaint: Prolonged rupture, labor arrest Narrative: Kindly asked to see in consultation this is a 43-year-old female who has been under the care of [facility] throughout her . She presented with spontaneous rupture of membranes approximately 20 hours ago. This was meconium stained fluid. Throughout the course of yesterday, and last night, attempts were made to augment her labor. She did receive Pitocin augmentation. She has had epidural for pain control. She has not progressed past 5 cm. Intermittent monitoring of this fetus shows an appropriate category strip with good activity. The risk, benefits, and alternatives including but not limited to infection, bleeding, injury to surrounding organs, risk of blood clot, risk of anesthesia were all explained to the patient in full informed consent was obtained today. She will be taken the operating suite for primary section due to labor arrest. Consults Consult date: 11/22/23 Requesting physician: Robinson Naqvi Review of Systems All systems reviewed & are unremarkable except as noted in HPI and below Constitutional Constitutional: Reports as per HPI Cardiovascular Cardiovascular: Reports system reviewed and no additional complaints, except as documented Respiratory Respiratory: Reports system reviewed and no additional complaints, except as documented Gastrointestinal Gastrointestinal: Reports system reviewed and no additional complaints, except as documented Genitourinary Genitourinary: Reports system reviewed and no additional complaints, except as documented and Reports as per HPI Musculoskeletal Musculoskeletal: Reports system reviewed and no additional complaints, except as documented PFSH All Active Problems (Updated 11/22/23 @ 05:12 by Robinson Naqvi) Failure to progress in labor (Acute) (Acute) Hypothyroid (Chronic) HSV-2 infection complicating (Acute) Term (Acute) Rh negative state in antepartum period (Acute) Social History Smoking/Tobacco Use Status: Never Smoking risk assessment performed?: Yes Alcohol Intake: never Drug use: Never Substance use type: does not use Housing: house Do you feel safe at home: Yes Do you feel safe in your relationship?: Yes History History 2 6 Para 0 Hx # Term Pregnancies Multiple births Hx # Pregnancies Ectopic pregnancies AB induced Hx Number of Living Children AB spontaneous Exam Const General: cooperative and healthy appearing Nutritional Appearance: obese Eyes General: appearance normal, both eyes and all related structures Resp Effort & Inspection: normal respiratory effort, no cough, not labored and no retractions Cardio Rate: regular rate Rhythm: regular rhythm Other: Per primary care, 6 cm, no descent. Extrem General: normal to inspection Results Last Vital Signs Temp 97.7 F 11/22/23 05:02 Pulse 65 11/22/23 04:01 Resp 16 11/21/23 14:23 BP 141/69 H 11/22/23 04:01 Pulse Ox 97 11/21/23 23:08 Labs 11/21/23 14:17 Labs: Laboratory Results - last 24 hr 11/21/23 14:17 WBC 9.46 RBC 4.17 Hgb 12.3 Hct 36.7 MCV 88 MCH 29.5 MCHC 33.5 RDW 14.0 Plt Count 240 MPV 9.5 Patient ABO/Rh O Negative Antibody Screen NEGATIVE
[2023-11-22] MEDS: Azithromycin 500 MG VIAL (06:11)
[2023-11-22] MEDS: AZITHROMYCIN 500 MG in Normal Saline 250 ML 250 MG IVPB (06:13)
[2023-11-22] MEDS: Normal Saline 250 ML (06:13)
[2023-11-22] MEDS: ceFAZolin 2 GM/50 ML BAG 50 GM (06:33)
[2023-11-22] MEDS: Bupivacaine 0.25% Pres-Free 30 ML VIAL (06:42)
--- NOTE | 2023-11-22 07:33 | W.PM.OBCSECT ---
Date of service: 11/22/23 Time of Service: 07:33 Operative Note Operative Note Delivery Method: Unscheduled STAT: No and Primary NTSV>37 Weeks: Yes DATE OF PROCEDURE: 11/22/23 PRE-OP DIAGNOSES: Postdates , prolonged rupture of membranes, labor arrest Same with large for gestational age PROCEDURE: Primary low-transverse section SURGEON: Sydnie Goldberg Hardening Machine Operator: Shyann Marquis Anesthesia: local and spinal Estimated blood loss (mL): 600 Pathology: none sent Complications: None Patient was transported to: floor Patient's condition: stable Indications: , postdates, prolonged rupture. Labor arrest at 6 cm. Findings: Normal fallopian tubes and ovaries. Globally enlarged uterus approximately 20 cm in greatest dimension. Delivery of a viable female infant weighing 10 pounds 2 ounces from the occiput transverse position Procedure Description: After consultation undertaken, full informed consent obtained for primary section due to labor arrest. Patient was taken to the operating suite with an IV running where she was placed in the seated position. Previous epidural catheter had been removed and spinal anesthesia administered per anesthesia. She received 3 g of Ancef, and 500 mg of Zithromax for surgical site infection prophylaxis. She had pneumatic compression stockings for DVT prophylaxis. She was placed in the dorsal supine position and prepped and draped in the usual sterile fashion including vaginal preparation and insertion of Prieto catheter for continuous bladder drainage. She had a leftward tilt. heart tones were assessed prior to prepping. Quarter percent Marcaine was used to infiltrate the anterior abdominal skin incision area. A Pfannenstiel skin incision was made and carried down to the underlying fascia which was nicked in the midline and the fascia was extended laterally. The rectus muscles were split in the midline and the peritoneum identified tented up and entered sharply. The peritoneal incision was then extended superiorly and inferiorly and the bladder blade was inserted. At this point the vesicouterine peritoneum was identified tented up and a bladder flap created. Bladder blade was reinserted and a low transverse uterine incision was made with a scalpel and extended bluntly laterally. The vertex was noted to be in the left occiput transverse position without significant engagement deep into the pelvis. vertex delivered without difficulty. There was no evidence of nuchal cord. Shoulders followed with ease. A three-vessel cord was noted clamped x 2 after appropriate delayed cord clamping and the patient was taken to the awaiting family practitioner. At this point cord blood sample was obtained and the placenta delivered spontaneously and was noted to be intact. The uterus was then exteriorized and cleared of all clot and debris. As of note the uterus is globally enlarged. The uterine incision was then closed using 0 Monocryl suture in a 2 layer closure first with an running lock suture second layer was imbricating. The incision was inspected and noted to be hemostatic. The uterus was then returned to the abdomen and abdomen irrigated with copious amounts of normal saline and again the uterine incision inspected and found to be hemostatic. At this point, the fascial incision was closed using 0 Vicryl suture in a running fashion. Subcutaneous tissue irrigated with copious months of normal saline. The subcutaneous space was reapproximated with 3-0 Vicryl in a simple interrupted fashion. Skin edge was then reapproximated with 4-0 undyed Monocryl suture in a subcuticular stitch. Steri-Strips and Mepilex dressing were placed. Uterus was firm post delivery. Patient was taken to the center in stable condition with a Prieto catheter draining clear yellow urine. Complications: None apparent Fluids: Crystalloid per anesthesia Pathology: None sent Findings: Delivery of viable female with weight of 10 pounds 2 ounces. Normal-appearing tubes and ovaries. Bulky, globular diffusely enlarged uterus. EBL: 600 cc. Gestational Age in Weeks/Days: 40 Weeks and 5 Days Infant Gender: Female weight: 10 lb 3.2 oz
[2023-11-22] MEDS: Levothyroxine 25 MCG TAB PO (08:21)
[2023-11-22] MEDS: diphenhydrAMINE 50 MG/ML VIAL 25 MG IVP ×2 (09:14→19:33)
[2023-11-22] MEDS: Ketorolac 30 MG/ML VIAL 15 MG IVP ×2 (13:07→19:34)
--- NOTE | 2023-11-22 13:16 | W.ANESPOSTOP ---
Postoperative Evaluation Date, Time and Location Date Performed: 11/22/23 Time Performed: 13:16 Patient Location: Obstetrics Vital Signs Most Recent Imported Vital Signs: Most Recent Vital Signs Temp Pulse Resp BP Pulse Ox 35.6 C L 65 16 107/70 96 11/22/23 09:40 11/22/23 09:40 11/22/23 10:30 11/22/23 09:40 11/22/23 09:40 Pain Score Most Recent Pain Score: Most Recent Pain Score Pain Level 2 11/22/23 13:07 Assessment Mental Status: Awake (Alert & Oriented to Patient Baseline) Airway and Respiratory Function: Patent airway with normal (patient baseline) respiratory exam Cardiovascular Function: Hemodynamically Stable Hydration Status: Adequately Hydrated Nausea & Vomiting: No Nausea or Vomiting Pain: Pain is tolerable per patient Peripheral Nerve Block: Patient did not receive a nerve block
[2023-11-23] MEDS: Normal Saline Flush 10 ML SYR IVP ×2 (00:43→03:29)
[2023-11-23] MEDS: oxyCODONE 5 mg/Acetaminophen 325 mg TAB PO ×5 (00:44→19:58)
[2023-11-23] MEDS: Ketorolac 30 MG/ML VIAL 15 MG IVP (00:44)
[2023-11-23] MEDS: diphenhydrAMINE 50 MG/ML VIAL 25 MG IVP (03:30)
[2023-11-23 03:44] VITALS: BP 128/74; PULSE 88; RESP 18; TEMP 36.8; O2SAT 99
[2023-11-23] MEDS: Levothyroxine 25 MCG TAB PO (06:05)
[2023-11-23 06:50] LABS: Abs Immature Grans 0.03 10^3/uL (0.0-0.06); Absolute Basophil Count 0.03 10^3/uL (0.0-0.2); Absolute Eosinophil Count 0.12 10^3/uL (0.0-0.7); Absolute Lymphocyte Count 1.49 10^3/uL (1.2-3.4); Absolute Monocyte Count 0.68 10^3/uL (0.1-0.8); Absolute Neutrophil Count 6.61 10^3/uL (1.2-6.7); Basophils % 0.3; Eosinophils % 1.3; HCT 30.1 % (36.0-46.0); Immature Grans % 0.3; Lymphocytes % 16.6; MCH 29.8 pg (27.0-33.0); MCHC 33.2 % (32.0-36.0); MCV 90 fL (80-95); MPV 9.5 fL (8.0-11.0); Monocytes % 7.6; Neutrophils % 73.9; Platelet Count 222 10^3/uL (130-400); RBC 3.36 10^6/uL (3.93-5.22); RDW 14.4 % (11.7-14.6); RDW-SD 46.5 fL; WBC 8.96 10^3/uL (4.4-10.8)
[2023-11-23] MEDS: Docusate Sodium 100 MG CAP PO ×2 (07:08→19:58)
[2023-11-23] MEDS: Loratidine 10 MG TAB PO (07:08)
[2023-11-23 07:40] VITALS: BP 117/77; PULSE 82; RESP 16; TEMP 36.7; O2SAT 94
[2023-11-23] MEDS: Ibuprofen 600 MG TAB PO ×2 (10:58→19:02)
[2023-11-23 12:15] VITALS: BP 132/72; PULSE 77; RESP 16; TEMP 36.6; O2SAT 96
[2023-11-23 20:00] VITALS: BP 113/65; PULSE 79; RESP 18; TEMP 37.3
[2023-11-23] MEDS: diphenhydrAMINE 25 MG CAP PO (22:02)
[2023-11-24] MEDS: oxyCODONE 5 mg/Acetaminophen 325 mg TAB PO ×5 (00:51→11:40)
[2023-11-24 02:05] VITALS: BP 117/65; PULSE 79; RESP 18
[2023-11-24] MEDS: Ibuprofen 600 MG TAB PO ×2 (02:26→08:41)
[2023-11-24] MEDS: diphenhydrAMINE 25 MG CAP PO (02:27)
[2023-11-24] MEDS: Levothyroxine 25 MCG TAB PO (05:01)
[2023-11-24] MEDS: Loratidine 10 MG TAB PO (06:44)
--- NOTE | 2023-11-24 07:51 | W.PM.OBPNV1 ---
Date of service: 11/24/23 Time of Service: 07:51 Assessment and Plan Assessment and plan (1) Status post primary low transverse section: Status: Acute Assessment and plan: Post op day #1, doing well. D/C home today Subjective Subjective Interval history: Patient seen, doing well. D/C today [place] baby status: Doing well, Nursing well and Strong Bonding Observed Exam Physical Exam Vital signs: Temp Pulse Resp BP Pulse Ox 99.1 F 79 18 117/65 96 11/23/23 20:00 11/24/23 02:05 11/24/23 02:05 11/24/23 02:05 11/23/23 12:15 Vital Signs Reviewed: Yes HEENT Exam HEENT Exam: Normal Neck Exam Neck Exam: Normal Respiratory Exam Respiratory Exam: Normal Cardiovascular Exam Cardiovascular Exam: Normal Abdominal Exam Comments: Soft, Non-tender, dressed wound Fundal Exam Fundus: Below Umbilicus and Firm Extremities Exam Extremity Exam: Normal and Edema (1+); negative Calf Tenderness Skin Exam Skin Exam: Abnormal (Pupps rash) Psychiatric Exam Psychiatric Exam: Normal Results Hemoglobin/Hematocrit: Hgb 10.0 g/dL (11.2-15.7) L D 11/23/23 06:00 Hct 30.1 % (36.0-46.0) L 11/23/23 06:00 Abnormal Lab Findings: Abnormal Labs 11/23/23 06:00 RBC 3.36 L Hgb 10.0 L D Hct 30.1 L
--- NOTE | 2023-11-24 08:04 | W.PM.OBDISCH ---
Date of service: 11/24/23 Time of Service: 08:04 DS: Diagnosis Discharge Diagnosis (1) Status post primary low transverse section: Status: Acute Asessment and Plan: D/C home today, Rx sent Discharge Plan Disposition Patient Disposition: Home Condition: Improving Discharge Details Reason For Visit: SROM Admit Date/Time: 11/21/23 14:05 Admit Provider: Robinson Naqvi Attending Provider: Robinson Naqvi Primary Care Provider: Robinson Naqvi Hospital Course Hospital Course: Patient presented at term with SROM. After a prolonged labor augmentation with arrest of dilation underwent a primary section for a macrosomic . Uncomplicated post op care. D/C home post op day #2 Home Meds and New Rx's Prescriptions: New ibuprofen [IBU] 800 mg tablet 800 mg PO Q8H Qty: 60 1RF oxycodone-acetaminophen [Percocet] 5-325 mg tablet 1 tab PO Q8H PRNQty: 7 0RF docusate sodium [Colace] 100 mg capsule 100 mg PO BID Qty: 30 1RF No Action valacyclovir 500 mg tablet 500 mg PO BID levothyroxine 25 mcg tablet 25 mcg PO ONCE Patient Comments: TAKE ONE TABLET BY MOUTH EVERY MORNING ON AN EMPTY STOMACH Discharge Instructions Stand Alone Forms: BC Instructions, BC Discharge Instruc Activity:: Pelvic Rest Equipment/Supplies:: No Equipment Needed Diet:: As Tolerated Discharge Orders Discharge Orders: Discharge Order (Routine); Ordered 11/24/23 Ordered By: Sydnie Goldberg OB:DS Summary Contraception Discussed Contraception Discussed: Yes Contraceptive Plan: IUD, [place] Infant Gender-Baby A: Female weight: 10 lb 2.084 oz Status at Discharge Functional status at discharge: independent ambulation Overall status at discharge: patient is back to baseline Mental Status: mental status grossly normal Speech and Movement: speech and movement normal Mood: congruent mood Affect: normal affect Quality:SDOH Health Related Social Needs: No Data to Display Exam Physical Exam Vital signs: Temp Pulse Resp BP Pulse Ox 99.1 F 79 18 117/65 96 11/23/23 20:00 11/24/23 02:05 11/24/23 02:05 11/24/23 02:05 11/23/23 12:15 Narrative: See exam from progress note dated 11/24/2023 PFSH All Active Problems (Updated 11/22/23 @ 05:12 by Robinson Naqvi) Status post primary low transverse section (Acute) Labor arrest, LGA, [place] Failure to progress in labor (Acute) (Acute) Hypothyroid (Chronic) HSV-2 infection complicating (Acute) Term (Acute) Rh negative state in antepartum period (Acute) Social History Smoking/Tobacco Use Status: Never Smoking risk assessment performed?: Yes Alcohol Intake: never Drug use: Never Substance use type: does not use Housing: house Do you feel safe at home: Yes Do you feel safe in your relationship?: Yes History History 6 Para 0 Hx # Term Pregnancies Multiple births Hx # Pregnancies Ectopic pregnancies AB induced Hx Number of Living Children AB spontaneous DS: Data Vitals/I&O Vitals and I&O: Vital Signs Temperature 99.1 F 11/23/23 20:00 Temperature 97.9 F 11/21/23 13:14 Temperature Source Oral 11/23/23 20:00 Pulse 79 11/24/23 02:05 Pulse 111 11/21/23 13:14 Pulse Rhythm Regular 11/23/23 20:00 Respiratory Rate 18 11/24/23 02:05 Blood Pressure 117/65 11/24/23 02:05 Blood Pressure 124/64 11/21/23 13:14 Blood Pressure Mean 82 11/24/23 02:05 Pulse Oximetry 96 11/23/23 12:15 Oxygen Delivery Method Room Air 11/21/23 14:23 Oxygen Flow Rate 0 11/21/23 14:23 Pain Level 4 11/24/23 02:05 Intake & Output 11/23/23 11/23/23 11/24/23 11:59 23:59 11:59 Intake Total 801.067 / 801.067 Output Total 2100 / 3600 1500 / 3600 Balance -2100 / -3600 -1500 / -3600 801.067 / 801.067 Intake: IV 801.067 / 801.067 Output: Urine 2100 / 3600 1500 / 3600 Other: Urine Color Yellow Dark Hali Urine Appearance Clear Clear Urine Odor None Comment void x2 Voiding Methods Toilet
[2023-11-24] MEDS: Docusate Sodium 100 MG CAP PO (08:41)
[2023-11-24 09:28] VITALS: BP 124/83; PULSE 83; RESP 18; TEMP 37.2; O2SAT 97
== END 2023-11-24 12:30 | disposition home or self-care (01) | DRG 787 ==
LOC: BCD 20:26 → OBS 20:26
PROVIDERS: Obstetrics & Gynecology; Admitting Provider Family Medicine; PCP Family Medicine; Visit Provider Family Medicine
PROC: 10D00Z1 Extraction of Products of Conception, Low, Open Approach (ICD-10-PCS; CPT 59514; principal; 2023-11-22 05:45)
DX: O98.32 Other infections with a predominantly sexual mode of transmission complicating childbirth; O48.0 Post-term pregnancy; Z37.0 Single live birth; Z67.91 Unspecified blood type, Rh negative; Z3A.40 40 weeks gestation of pregnancy; O36.63X0 Maternal care for excessive fetal growth, third trimester, not applicable or unspecified; O99.284 Endocrine, nutritional and metabolic diseases complicating childbirth; E03.9 Hypothyroidism, unspecified; O42.92 Full-term premature rupture of membranes, unspecified as to length of time between rupture and onset of labor; O76 Abnormality in fetal heart rate and rhythm complicating labor and delivery; O62.0 Primary inadequate contractions; O26.893 Other specified pregnancy related conditions, third trimester
CPT/HCPCS: 59514; 00123; 36415; 76815; 85027; 86850; 86900; 86901; 85025; J0456; J0665; J0690; J1200; J1885; J2274; J2371; J2405; J3010; J3490